=== PATIENT | female | born 1945 | race Caucasian/White ===

== ENCOUNTER 2018-12-15 13:50 | Emergency (ER) | payer MEDICARE ==
[~2018-12-15] VITALS: Ht 162 cm; Wt 71.0 kg
--- NOTE | 2018-12-15 14:11 | ED Fall/Injury ---
General Chief Complaint: Trauma-Non Activation Stated Complaint: FALL Nursing Triage Note: PT STATES FELL DENIES PASSING OUT, PT HAS ABRASION ON CHIN, NOSE AND LAC FROM GLASSES ACROSS NOSE. DENIES LOC Source: patient Exam Limitations: no limitations History of Present Illness Date Seen by Provider: Dec 15, 2018 Time Seen by Provider: 14:09 Initial Comments To ER with reports of a fall just prior to arrival. She believes this to be from new shoes didn't fit correctly, she states she did not pass out she has a laceration to the bridge of her nose, abrasion on her chin. Tetanus is up-to-date within last 5 years. She otherwise feels well but she is noted to be incidentally febrile at 101.2 on arrival. She has some chronic low back pain, she's had a slight cough for the past few weeks as well. Location Injury Occurred: [address] Occurred: just prior to arrival Severity: mild Injuries/Pain Location: face, lower extremity (abrasions to both anterior knees) Context: tripped Loss of Consciousness: no loss of consciousness Allergies and Home Medications Allergies Coded Allergies: morphine (Verified Allergy, Mild, 12/15/18) Patient Home Medication List Home Medication List Reviewed: Yes Review of Systems Review of Systems Constitutional: see HPI Eyes: No Symptoms Reported Ears, Nose, Mouth, Throat: no symptoms reported, nose pain Respiratory: no symptoms reported Cardiovascular: no symptoms reported Genitourinary: no symptoms reported Musculoskeletal: no symptoms reported Skin: no symptoms reported Psychiatric/Neurological: No Symptoms Reported Past Lfwyphm-Tktkrn-Esbcxo Hx Patient Social History Alcohol Use: Denies Use Recreational Drug Use: No Smoking Status: Never a Smoker Recent Foreign Travel: No Contact w/Someone Who Travel: No Recent Infectious Disease Expo: No Recent Hopitalizations: No Immunizations Up To Date Tetanus Booster (TDap): Less than 5yrs Past Medical History Surgeries: No Respiratory: No Cardiac: Yes Hypertension Neurological: Yes (LOWER EXT NEUROPATHY) Neuropathy Genitourinary: No Gastrointestinal: Yes Gastroesophageal Reflux Musculoskeletal: Yes Arthritis Endocrine: No HEENT: No Cancer: No Psychosocial: No Physical Exam Vital Signs Vital Signs - First Documented 12/15/18 13:52 Temp 38.4 Pulse 108 Resp 18 B/P (MAP) 160/67 (98) Pulse Ox 95 Capillary Refill : Less Than 3 Seconds Height, Weight, BMI Height: '" Weight: lbs. oz. kg; 27.00 BMI Method: General Appearance: WD/WN, no apparent distress HEENT: PERRL/EOMI, normal ENT inspection Neck: non-tender, full range of motion Cardiovascular: regular rate, rhythm, no murmur Respiratory: lungs clear, normal breath sounds, no respiratory distress, no accessory muscle use Gastrointestinal: normal bowel sounds, non tender, soft Extremities: normal range of motion, non-tender, other (the skin overlying the patella of each knee is slightly ecchymotic and abraded an area about nickel size, there is no erythema no palpable joint effusion, no affected knee, neither knee appears infected. She just finished an antibiotic for abrasion that was infected to the upper outer arm on the left humerus) Neurologic/Psychiatric: alert, normal mood/affect, oriented x 3 Skin: normal color, warm/dry George Coma Score Best Eye Response: (4) Open Spontaneously Best Verbal Response: (5) Oriented Best Motor Response: (6) Obeys Commands [place] Total: 15 Procedures/Interventions Wound Location: Face Wound Length (cm): 1 Wound's Depth, Shape: linear Wound Explored: clean Anesthesia: 1% Lidocaine Suture: Prolene Suture Size: 5-0 Number of Sutures: 2 Layer Closure?: 1 Number Deep Layer Sutures: 0 Progress/Results/Core Measures Results/Orders Lab Results Laboratory Tests Test 12/15/18 14:20 12/15/18 14:25 Range/Units White Blood Count 16.5 H 4.3-11.0 10^3/uL Red Blood Count 3.55 L 4.35-5.85 10^6/uL Hemoglobin 9.5 L 11.5-16.0 G/DL Hematocrit 31 L 35-52 % Mean Corpuscular Volume 86 80-99 FL Mean Corpuscular Hemoglobin 27 25-34 PG Mean Corpuscular Hemoglobin Concent 31 L 32-36 G/DL Red Cell Distribution Width 14.1 10.0-14.5 % Platelet Count 218 130-400 10^3/uL Mean Platelet Volume 11.3 H 7.4-10.4 FL Neutrophils (%) (Auto) 86 H 42-75 % Lymphocytes (%) (Auto) 8 L 12-44 % Monocytes (%) (Auto) 5 0-12 % Eosinophils (%) (Auto) 1 0-10 % Basophils (%) (Auto) 0 0-10 % Neutrophils # (Auto) 14.1 H 1.8-7.8 X 10^3 Lymphocytes # (Auto) 1.3 1.0-4.0 X 10^3 Monocytes # (Auto) 0.9 0.0-1.0 X 10^3 Eosinophils # (Auto) 0.1 0.0-0.3 10^3/uL Basophils # (Auto) 0.0 0.0-0.1 10^3/uL Neutrophils % (Manual) 84 % Lymphocytes % (Manual) 11 % Monocytes % (Manual) 4 % Eosinophils % (Manual) 1 % Basophils % (Manual) 0 % Hypochromasia SLIGHT Poikilocytosis SLIGHT Elliptocytes SLIGHT Sodium Level 143 135-145 MMOL/L Potassium Level 4.2 3.6-5.0 MMOL/L Chloride Level 110 H 98-107 MMOL/L Carbon Dioxide Level 25 21-32 MMOL/L Anion Gap 8 5-14 MMOL/L Blood Urea Nitrogen 20 H 7-18 MG/DL Creatinine 0.89 0.60-1.30 MG/DL Estimat Glomerular Filtration Rate > 60 BUN/Creatinine Ratio 22 Glucose Level 128 H 70-105 MG/DL Calcium Level 8.2 L 8.5-10.1 MG/DL Corrected Calcium 8.6 8.5-10.1 MG/DL Total Bilirubin 0.3 0.1-1.0 MG/DL Aspartate Amino Transf (AST/SGOT) 17 5-34 U/L Alanine Aminotransferase (ALT/SGPT) 13 0-55 U/L Alkaline Phosphatase 82 40-136 U/L Total Protein 6.0 L 6.4-8.2 GM/DL Albumin 3.5 3.2-4.5 GM/DL Urine Color YELLOW Urine Clarity CLEAR Urine pH 5 5-9 Urine Specific Heath 1.015 L 1.016-1.022 Urine Protein 1+ H NEGATIVE Urine Glucose (UA) NEGATIVE NEGATIVE Urine Ketones NEGATIVE NEGATIVE Urine Nitrite NEGATIVE NEGATIVE Urine Bilirubin NEGATIVE NEGATIVE Urine Urobilinogen NORMAL NORMAL MG/DL Urine Leukocyte Esterase 2+ H NEGATIVE Urine RBC (Auto) NEGATIVE NEGATIVE Urine RBC NONE /HPF Urine WBC 0-2 /HPF Urine Squamous Epithelial Cells 2-5 /HPF Urine Crystals NONE /LPF Urine Bacteria TRACE /HPF Urine Casts NONE /LPF Urine Mucus SMALL H /LPF Urine Culture Indicated NO My Orders Orders - SAQIB WRIGHT APRN Cbc With Automated Diff (12/15/18 14:06) Comprehensive Metabolic Panel (12/15/18 14:06) Ua Culture If Indicated (12/15/18 14:06) Chest 1 View, Ap/Pa Only (12/15/18 14:06) Ct Head/Face/Cervical Wo (12/15/18 14:06) Lidocaine 1% Inj 20 Ml (Xylocaine 1% Inj (12/15/18 14:15) Ibuprofen Tablet (Motrin Tablet) (12/15/18 14:30) Manual Differential (12/15/18 14:20) Us Carotid Vivian Complete [id number] (12/15/18 14:42) Doxycycline Hyclate Tablet (Vibramycin T (12/15/18 16:15) Ns Iv 1000 Ml (Sodium Chloride 0.9%) (12/15/18 16:15) Medications Given in ED Current Medications Medications Dose Ordered Sig/[place] Route Start Time Stop Time Status Last Admin Dose Admin Ibuprofen 800 mg ONCE ONCE PO 12/15/18 14:30 12/15/18 14:31 DC 12/15/18 14:43 800 MG Lidocaine HCl 2.1 ml ONCE ONCE INJ 12/15/18 14:15 12/15/18 14:16 DC 12/15/18 14:52 2.1 ML Vital Signs/I&O 12/15/18 12/15/18 13:52 14:51 Temp 38.4 Pulse 108 83 90 98 Resp 18 B/P (MAP) 160/67 (98) 132/51 (78) 131/56 (81) 132/59 (83) Pulse Ox 95 2 Blood Pressure Mean: 98 Diagnostic Imaging Comments NAME: RICO MCNEIL [facility] REC#: [id number] PT STATUS: REG ER : 1945 PHYSICIAN: SAQIB WRIGHT APRN ADMIT DATE: 12/15/18/ER Signed Date of Exam:12/15/18 US CAROTID VIVIAN COMPLETE [id number] PROCEDURE: US carotid duplex, bilateral. TECHNIQUE: Multiple real-time grayscale images were obtained over the carotid arteries in various projections, bilaterally. Additional spectral analysis and color Doppler duplex images were also obtained. INDICATION: Syncope. There is minimal atherosclerotic plaque seen on the grayscale images of the right internal carotid artery. There is no alteration of the waveforms are velocities. There is calcified plaque in the left carotid bulb causing a stenosis greater than 80%. Both vertebral arteries are patent with antegrade flow. IMPRESSION: Severe stenosis left internal carotid artery. Parameters based on the consensus panel Ron-Scale and Doppler ultrasound criteria published January 2003, Radiology, Volume 229. DOPPLER (peak systolic velocity M/S Right Left CCA 1.37 1.10 ICA Proximal .88 3.35 ICA Mid 1.14 3.67 ICA Distal 1.14 2.62 RATIO 0.80 3.30 ECA 1.51 1.74 VERT .89 1.05 Dictated by: Dictated on workstation # [id number] Dict: 12/15/18 1527 Trans: 12/15/18 1530 [id number] Interpreted by: YU DAWN MD Electronically signed by: YU DAWN MD 12/15/18 1530 Departure Communication (Admissions) NAME: RICO MCNEIL [facility] REC#: [id number] PT STATUS: REG ER : 1945 PHYSICIAN: SAQIB WRIGHT APRN ADMIT DATE: 12/15/18/ER Signed Date of Exam:12/15/18 CT HEAD/FACE/CERVICAL WO PROCEDURE: CT head, face, and cervical spine without contrast. TECHNIQUE: Multiple contiguous axial images were obtained through the head, neck, and facial bones without the use of intravenous contrast. Sagittal and coronal reformations through the cervical spine and facial bones were also performed. Auto Exposure Controls were utilized during the CT exam to meet ALARA standards for radiation dose reduction. INDICATION: Multiple falls, complaining of head and neck pain as well as jaw pain. COMPARISON: No prior studies are available for comparison. FINDINGS: CT head: Ventricular size and sulcal pattern are appropriate for the patient's age. There are basal ganglial calcifications noted. No sulcal effacement or midline shift is seen. No acute intra-axial or extra-axial hemorrhage is detected. Cisterns are patent. Visualized paranasal sinuses are clear. IMPRESSION: No acute intracranial process is detected. CT face: The mandible is intact. The zygomatic arches appear to be intact. Maxillary sinus garcia as well as the orbital garcia are intact. There is some minimal mucosal thickening of right-sided posterior ethmoid air cells. Remaining paranasal sinuses are clear. The nasal bones are intact. IMPRESSION: No facial bone fractures identified. CT cervical spine: Curvature is within normal limits. There is minimal anterolisthesis of C4 on C5 with minimal retrolisthesis of C5 on C6. There is severe degenerative disc disease at C5-C6 and C6-C7 levels where there is complete loss of the disc space as well as marginal osteophyte formation. The prevertebral tissues are normal. No fractures are seen. The odontoid appears intact. There is multilevel facet arthropathy. IMPRESSION: Cervical spondylosis. No acute bony abnormality is identified. Dictated by: Dictated on workstation # [id number] Dict: 12/15/18 1528 Trans: 12/15/18 1546 [facility] [id number] Interpreted by: DAVION CALERO MD Electronically signed by: DAVION CALERO MD 12/15/18 [address] Olvera agrees with plan of care, could do doxycycline empirically and liter of IV fluids. NAME: RICO MCNEIL [facility] REC#: [id number] PT STATUS: REG ER : 1945 PHYSICIAN: SAQIB WRIGHT [employer] QUANTITATIVE GENETICIST ADMIT DATE: 12/15/18/ER Signed Date of Exam:12/15/18 CHEST 1 VIEW, AP/PA ONLY Indication: Chest trauma from a fall Portable chest 2:51 PM Heart and mediastinum are normal. Lungs are clear. There are no effusions or pneumothoraces. IMPRESSION: Negative chest Dictated by: Dictated on workstation # [id number] Dict: 12/15/18 1501 Trans: 12/15/18 1502 [id number] Interpreted by: YU DAWN MD Electronically signed by: YU DAWN MD 12/15/18 1502 Impression Primary Impression: Leukocytosis Qualified Codes: D72.829 - Elevated white blood cell count, unspecified Additional Impressions: Laceration of nose Qualified Codes: S01.21XA - Laceration without foreign body of nose, initial encounter Fall Qualified Codes: W19.XXXA - Unspecified fall, initial encounter Left carotid stenosis Disposition: 01 HOME, SELF-CARE Condition: Stable Departure-Patient Inst. Decision time for Depature: 15:54 Referrals: NO,LOCAL PHYSICIAN (PCP) Primary Care Physician Patient Instructions: NO INSTRUCTIONS GIVEN Add. Discharge Instructions: 1. Sutures out in 5-7 days All discharge instructions reviewed with patient and/or family. Voiced understanding. Follow-up with your doctor as soon as you return home, they evaluated in an emergency room where you may be at the time if you have any recurrent or wors ening symptoms. Scripts Doxycycline Hyclate (Doxycycline Hyclate) 100 Mg Tablet 100 MG PO BID, #20 TAB 0 Refills Prov: SAQIB WRIGHT APRN 12/15/18 SAQIB WRIGHT APRN Dec 15, 2018 14:11
[2018-12-15] MEDS ORDERED: LIDOCAINE 1% INJ 20 ML 20 ML VIAL INJ ONE (14:15)
[2018-12-15] MEDS ORDERED: IBUPROFEN 800 MG (MOTRIN) TAB PO ONE (14:30)
[2018-12-15 14:32] LABS: BASOPHILS % (AUTO) 0 % (0-10); EOSINOPHILS # (AUTO) 0.1 10^3/uL (0.0-0.3); EOSINOPHILS % (AUTO) 1 % (0-10); HEMATOCRIT 31 % (35-52); HEMOGLOBIN 9.5 G/DL (11.5-16.0); LYMPHOCYTES # (AUTO) 1.3 X 10^3 (1.0-4.0); LYMPHOCYTES % (AUTO) 8 % (12-44); MEAN CORPUSCULAR HEMOGLOBIN 27 PG (25-34); MEAN CORPUSCULAR HGB CONC 31 G/DL (32-36); MEAN CORPUSCULAR VOLUME 86 FL (80-99); MEAN PLATELET VOLUME 11.3 FL (7.4-10.4); MONOCYTES # (AUTO) 0.9 X 10^3 (0.0-1.0); MONOCYTES % (AUTO) 5 % (0-12); NEUTROPHILS # (AUTO) 14.1 X 10^3 (1.8-7.8); NEUTROPHILS % (AUTO) 86 % (42-75); PLATELET COUNT 218 10^3/uL (130-400); RED CELL DISTRIBUTION WIDTH 14.1 % (10.0-14.5); WHITE BLOOD COUNT 16.5 10^3/uL (4.3-11.0)
[2018-12-15 14:51] VITALS: BP_SYST 131; BP_SYST 132; BP_DIAS 51; BP_DIAS 56; BP_DIAS 59
[2018-12-15 14:54] LABS: ALANINE AMINOTRANSFERASE 13 U/L (0-55); ALBUMIN 3.5 GM/DL (3.2-4.5); ALKALINE PHOSPHATASE 82 U/L (40-136); BILIRUBIN,TOTAL 0.3 MG/DL (0.1-1.0); BUN/CREATININE RATIO 22; CALCIUM 8.2 MG/DL (8.5-10.1); CARBON DIOXIDE 25 MMOL/L (21-32); CHLORIDE 110 MMOL/L (98-107); CREATININE SERUM 0.89 MG/DL (0.60-1.30); GFR ESTIMATED > 60; GLUCOSE 128 MG/DL (70-105); POTASSIUM 4.2 MMOL/L (3.6-5.0); SODIUM 143 MMOL/L (135-145)
--- NOTE | 2018-12-15 15:04 | Diagnostic Imaging Report ---
Indication: Chest trauma from a fall Portable chest 2:51 PM Heart and mediastinum are normal. Lungs are clear. There are no effusions or pneumothoraces. IMPRESSION: Negative chest Dictated by: Dictated on workstation # [id number]
[2018-12-15 15:11] LABS: BASOPHILS % (MANUAL) 0 %; ELLIPT/OVALOCYTES SLIGHT; EOSINOPHILS % (MANUAL) 1 %; HYPOCHROMASIA SLIGHT; LYMPHOCYTES % (MANUAL) 11 %; MONOCYTES % (MANUAL) 4 %; NEUTROPHILS % (MANUAL) 84 %; POIKILOCYTOSIS SLIGHT
[2018-12-15 15:16] LABS: BILIRUBIN,URINE NEGATIVE (NEGATIVE); GLUCOSE, URINE (UA) NEGATIVE (NEGATIVE); KETONES,URINE NEGATIVE (NEGATIVE); LEUKOCYTE ESTERASE ,URINE 2+ (NEGATIVE); NITRITE,URINE NEGATIVE (NEGATIVE); PH,URINE 5 (5-9); PROTEIN,URINE 1+ (NEGATIVE); UROBILINOGEN,URINE NORMAL (NORMAL)
[2018-12-15 15:22] LABS: BACTERIA,URINE TRACE /HPF; CLARITY,URINE CLEAR; COLOR,URINE YELLOW; WBC,URINE 0-2 /HPF
--- NOTE | 2018-12-15 15:32 | Diagnostic Imaging Report ---
PROCEDURE: US carotid duplex, bilateral. TECHNIQUE: Multiple real-time grayscale images were obtained over the carotid arteries in various projections, bilaterally. Additional spectral analysis and color Doppler duplex images were also obtained. INDICATION: Syncope. There is minimal atherosclerotic plaque seen on the grayscale images of the right internal carotid artery. There is no alteration of the waveforms are velocities. There is calcified plaque in the left carotid bulb causing a stenosis greater than 80%. Both vertebral arteries are patent with antegrade flow. IMPRESSION: Severe stenosis left internal carotid artery. Parameters based on the consensus panel Ron-Scale and Doppler ultrasound criteria published January 2003, Radiology, Volume 229. DOPPLER (peak systolic velocity M/S Right Left CCA 1.37 1.10 ICA Proximal .88 3.35 ICA Mid 1.14 3.67 ICA Distal 1.14 2.62 RATIO 0.80 3.30 ECA 1.51 1.74 VERT .89 1.05 Dictated by: Dictated on workstation # [id number]
--- NOTE | 2018-12-15 15:42 | Diagnostic Imaging Report ---
PROCEDURE: CT head, face, and cervical spine without contrast. TECHNIQUE: Multiple contiguous axial images were obtained through the head, neck, and facial bones without the use of intravenous contrast. Sagittal and coronal reformations through the cervical spine and facial bones were also performed. Auto Exposure Controls were utilized during the CT exam to meet ALARA standards for radiation dose reduction. INDICATION: Multiple falls, complaining of head and neck pain as well as jaw pain. COMPARISON: No prior studies are available for comparison. FINDINGS: CT head: Ventricular size and sulcal pattern are appropriate for the patient's age. There are basal ganglial calcifications noted. No sulcal effacement or midline shift is seen. No acute intra-axial or extra-axial hemorrhage is detected. Cisterns are patent. Visualized paranasal sinuses are clear. IMPRESSION: No acute intracranial process is detected. CT face: The mandible is intact. The zygomatic arches appear to be intact. Maxillary sinus garcia as well as the orbital garcia are intact. There is some minimal mucosal thickening of right-sided posterior ethmoid air cells. Remaining paranasal sinuses are clear. The nasal bones are intact. IMPRESSION: No facial bone fractures identified. CT cervical spine: Curvature is within normal limits. There is minimal anterolisthesis of C4 on C5 with minimal retrolisthesis of C5 on C6. There is severe degenerative disc disease at C5-C6 and C6-C7 levels where there is complete loss of the disc space as well as marginal osteophyte formation. The prevertebral tissues are normal. No fractures are seen. The odontoid appears intact. There is multilevel facet arthropathy. IMPRESSION: Cervical spondylosis. No acute bony abnormality is identified. Dictated by: Dictated on workstation # [id number]
[2018-12-15] MEDS ORDERED: NS IV 1000 ML 1,000 ML IV SCH (16:15)
[2018-12-15] MEDS ORDERED: DOXYCYCLINE 100 MG (VIBRAMYCIN) TABLET PO SCH (16:15)
[2018-12-15] MEDS ORDERED: DOXY100T2 PO (16:33)
[2018-12-15 17:14] VITALS: BP 132/56
== END 2018-12-15 17:22 | disposition home or self-care (01) ==
LOC: ER 13:52
DX: S01.21XA Laceration without foreign body of nose, initial encounter (principal); D72.829 Elevated white blood cell count, unspecified; I65.22 Occlusion and stenosis of left carotid artery; I10 Essential (primary) hypertension; G62.9 Polyneuropathy, unspecified; K21.9 Gastro-esophageal reflux disease without esophagitis; R40.2142 Coma scale, eyes open, spontaneous, at arrival to emergency department; R40.2252 Coma scale, best verbal response, oriented, at arrival to emergency department; R40.2362 Coma scale, best motor response, obeys commands, at arrival to emergency department; Z88.5 Allergy status to narcotic agent; W01.0XXA Fall on same level from slipping, tripping and stumbling without subsequent striking against object, initial encounter; Y92.410 Unspecified street and highway as the place of occurrence of the external cause
CPT/HCPCS: 36415; 70450; 70486; 71045; 72125; 80053; 81000; 85007; 85027; 93880